=== PATIENT | female | born 1925 | race Caucasian/White ===

== ENCOUNTER → 2016-06-12 | Outpatient (CLI) | payer MEDICARE, BC, MEDICAID ==
[~2016-06-12] MED LIST: ALLO100T51 PO; ASPI-715 PO; COLC0.6T69 PO; FURO40TA5 PO; LEVO100T85 PO; NITR0.4T SL; POLY17PO6 PO
[2016-06-12 07:08] LABS: BASOPHILS % (AUTO) 0.5 % (0-2); EOSINOPHILS # (AUTO) 0.2 T/MM3 (0-0.5); HCT - HEMATOCRIT 36.5 % (36-46); HGB - HEMOGLOBIN 11.7 GM/DL (12-16); IMMATURE GRANULOCYTE # (AUTO) 0.01 T/MM3 (0.00-0.03); IMMATURE GRANULOCYTE % (AUTO) 0.2 % (0.0-0.5); LYMPHOCYTES # (AUTO) 0.7 T/MM3 (1-4.8); MEAN CORPUSCULAR HGB 31.5 UUG (26-34); MEAN CORPUSCULAR HGB CONC(MCHC 32.1 GM/DL (31-37); MEAN CORPUSCULAR VOLUME 98.4 UM3 (80-100); MEAN PLATELET VOLUME 10.6 UM3 (9.4-12.4); MONOCYTES # (AUTO) 0.5 T/MM3 (0-0.8); MONOCYTES % (AUTO) 9.2 % (0-9.0); NEUTROPHILS #(AUTO)-ABSOLUTE 4.2 T/MM3 (1.8-7.7); NEUTROPHILS % (AUTO) 74.1 % (33-66); RED BLOOD COUNT 3.71 M/MM3 (4.00-5.20); WBC - WHITE BLOOD COUNT 5.7 T/MM3 (4.5-11.0)
== END ==
LOC: LABNH.AP 02:20
PROVIDERS: ATTEND Family Medicine
DX: I50.9 Heart failure, unspecified (principal)
CPT/HCPCS: 36415; 85025; P9604

== ENCOUNTER → 2016-07-10 | Outpatient (CLI) | payer MEDICARE, BC, MEDICAID ==
[2016-07-10 09:35] LABS: ANION GAP 16 MEQ/L (5-15); BUN/CREATININE RATIO 20 RATIO (6-26); CALCIUM 9.2 MG/DL (8.4-10.2); CHLORIDE 96 MEQ/L (98-107); CO2 - CARBON DIOXIDE 28 MEQ/L (22-30); CREATININE 2.5 MG/DL (0.7-1.2); GLOMERULAR FILTRATION RATE 18; GLUCOSE 82 MG/DL (65-110); POTASSIUM 3.5 MEQ/L (3.6-5); SODIUM 140 MEQ/L (134-144)
== END ==
LOC: LABNH.AP 02:43
PROVIDERS: ATTEND Family Medicine
DX: I50.9 Heart failure, unspecified (principal)
CPT/HCPCS: 36415; 80048; P9604